=== PATIENT | female | born 1970 | race Caucasian/White ===

== ENCOUNTER 2023-06-22 20:03 | Observation (INO) ==
[2023-06-22] MEDS ORDERED: KETOROLAC TROMETHAMINE 15 MG/ML VIAL IV STA (20:30)
[2023-06-22] MEDS ORDERED: ONDANSETRON INJ 2 MG/ML 2 ML VIAL IV STA ×2 (20:30→23:06)
[2023-06-22 21:57] LABS: Albumin Level 4.8 gm/dl (3.4-5.0); BUN Creatinine Ratio 22.4 (10-20); Basophils # (auto) 0.04 K/uL (0-0.2); Basophils % (auto) 0.6 %; Bilirubin,Total 0.4 mg/dl (0.2-1.0); Calcium 9.5 mg/dl (8.6-10.3); Creatinine Clr Calc Pharmacy 112.7 ml/min; Eosinophils # (auto) 0.09 K/uL (0-0.50); Eosinophils % (auto) 1.5 %; Est GFR (Non-African American) 77.7 ml/min; Globulin 2.4 gm/dl (2.5-4.0); Hematocrit (blood only) 40.4 % (37.0-47.0); Hemoglobin 14.1 g/dl (12.0-16.0); Immature Granulocytes # (auto) 0.02 K/uL (0.01-0.20); Immature Granulocytes % (auto) 0.3 %; Lymphocytes # (auto) 1.47 K/uL (1.2-3.4); Lymphocytes % (auto) 23.9 %; Mean Corpuscular Hgb Conc 34.9 g/dL (32.0-36.0); Mean Platelet Volume 9.7 fL (9.4-12.4); Monocytes # (auto) 0.31 K/uL (0.11-0.59); Neutrophils # (auto) 4.23 K/uL (1.40-6.50); Neutrophils % (auto) 68.7 %; Platelet Count 185 K/uL (130-400); Potassium 3.6 mmol/L (3.5-5.1); RDW Coefficient of Variation 13.4 % (11.5-14.5); RDW Standard Deviation 41.8 fL (36.4-46.3); Total Protein 7.2 gm/dl (6.0-8.3); White Blood Count 6.16 K/ul (4.8-10.8)
[2023-06-22] MEDS ORDERED: MoRPHine SULFATE 4 MG/ML 1 ML CARP\\VIAL IV STA (23:06)
--- NOTE | 2023-06-22 23:06 | Emergency Department Note ---
History of Present Illness General Chief complaint: Kidney Stone Stated complaint: KIDNEY STONES Time Seen by Provider: 06/22/23 21:37 History of Present Illness Maximum Pain Intensity: 8 This 53-year-old female presents the ER complaining of severe right flank pain. Patient denies chest pain, dyspnea, vomiting, diarrhea, urinary symptoms. Home Medications Medication Instructions Recorded Confirmed Type fluticasone propionate 220 2 puffs inhalation BID 08/02/18 05/25/23 History mcg/actuation HFA aerosol inhaler (Flovent HFA) montelukast 10 mg tablet 10 mg PO QPM 08/02/18 05/25/23 History (Singulair) albuterol sulfate 90 mcg/actuation 1 puffs inhalation Q6H PRN 03/28/19 05/25/23 History aerosol inhaler onabotulinumtoxinA 100 unit See Rx Instructions intradermal 11/15/19 05/25/23 History solution for injection (Botox) .COMPLEX multivitamin (Multiple Vitamins 1 tab PO DAILY 05/25/20 05/25/23 History tablet) promethazine 50 mg tablet 50 mg PO Q6H PRN nausea and 12/10/20 05/25/23 Rx vomiting #10 tabs lisinopril 2.5 mg tablet 2.5 mg PO DAILY 06/03/21 05/25/23 History sumatriptan succinate 100 mg tablet See Rx Instructions PO .COMPLEX 30 06/03/21 05/25/23 Rx days #9 tabs meloxicam 15 mg tablet 15 mg PO DAILY 11/25/22 05/25/23 History hydroxychloroquine 200 mg tablet 200 mg PO BID 01/02/23 05/25/23 History pantoprazole 20 mg tablet,delayed 20 mg PO DAILY 01/02/23 05/25/23 History release topiramate 100 mg tablet 100 mg PO HS #30 tabs 02/10/23 05/25/23 Rx galcanezumab-gnlm 120 mg/mL See Rx Instructions .Route 04/17/23 05/25/23 Rx subcutaneous pen injector .COMPLEX #1 mL (Emgality Pen) glipizide 5 mg tablet 10 mg PO BID 05/25/23 05/25/23 History semaglutide 0.25 mg or 0.5 mg (2 0.25 mg subcut .weekly 05/25/23 05/25/23 History mg/3 mL) subcutaneous pen injector (Ozempic) Allergies Allergy/AdvReac Type Severity Reaction Status Date / Time azathioprine [From Imuran] Allergy Severe Chills, Verified 05/25/23 11:31 fever, body aches, fatigue Past Med/Surg History Medical History (Updated 06/23/23 @ 01:29 by Kalee Jones PA-C) Asthma CAD (coronary artery disease) Chronic migraine Depression Fatigue Headache Hypercholesterolemia Hypertension Migraine Spinal stenosis of lumbar region Symptomatic bradycardia Surgical History H/O wisdom tooth extraction History of section History of dilatation and curettage History of sinus surgery Family History Mother COPD (chronic obstructive pulmonary disease) Social History Smoking Status: Never smoker Hx Alcohol Use: Yes (socially) Hx Substance Use: No Preferred Language: Vincentian Communication Ability: Effective Visual Impairment: No Limitations Hearing Ability: Normal Beliefs That Will Affect Care: None marital status: Current Living Situation: Spouse current occupational status: employed 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 Feels Safe at Home: Yes Review of Systems A total of 10 systems reviewed and were otherwise negative Physical Exam Vital Signs Vital Signs - 24 hr 06/22/23 20:25 06/23/23 00:07 Temperature 36.5 C Temperature Source Oral Pulse Rate 63 Pulse Rate [Finger] 60 Pulse Rhythm [Finger] Regular Pulse Strength [Finger] Normal Respiratory Rate 20 24 Respiratory Effort / Characteristics Non-Labored Non-Labored Respiratory Depth Normal Normal Blood Pressure 182/81 H Blood Pressure [Right Arm] 196/97 H Blood Pressure Mean 114 Blood Pressure Mean [Right Arm] 130 Pulse Oximetry 99 Oxygen Delivery Method Room Air Sepsis Recent Fever Within 48 Hours No Sepsis New/Unexplained Change in Mental Status No Sepsis Action Taken by Nursing No Action Required VITALS: Vitals are noted on the nurse's note and reviewed by myself. Vital signs hypertensive. GENERAL: Pleasant female who appears in pain, in no acute distress, nondiaphoretic, well-developed well-nourished. SKIN: The skin was without rashes, erythema, edema, or bruising. There is no tenting of the skin. Capillary reflex less than 2 seconds. HEAD: Normocephalic atraumatic. EARS: External auditory canals clear, EYES: Pupils equal round and reactive to light and accommodation. Conjunctivae without injection, sclerae without icterus. Extraocular movements intact. NOSE: Patent, turbinates without inflammation or discharge. MOUTH: Mucous membranes moist. Pharynx without erythema or exudate. Uvula midline. Airway patent. Tongue does not deviate. NECK: Supple without nuchal rigidity. No lymphadenopathy. No thyromegaly. Cervical spine is nontender. No JVD. HEART: Regular rate and rhythm LUNGS: Clear to auscultation bilaterally without wheezes, rales or rhonchi. No retractions or accessory muscle use. ABDOMEN: Positive bowel sounds x 4. Normal tympanic percussion. Soft, nontender, without masses or organomegaly. Herron sign negative. No guarding or rebound tenderness. No CVA tenderness MUSCULOSKELETAL: No muscle atrophy, erythema, or edema noted. NEURO: Patient was alert and oriented to person place and time. Normal sensation to light and sharp touch. No focal neurological deficits. Course Administered Medications Discontinued Medications Ioversol (Ioversol 350 Mg 125ml Prefilled Syringe) 117 ml IV ONCE ONE Stop: 06/22/23 23:56 Last Admin: 06/22/23 23:57 Dose: 117 ml Documented By: ODALIS Ketorolac Tromethamine (Ketorolac Tromethamine 15 Mg/Ml Vial) 15 mg IV ONE STA Stop: 06/22/23 20:31 Last Admin: 06/22/23 21:27 Dose: 15 mg Documented By: ARIC Morphine Sulfate (Morphine Sulfate 4 Mg/Ml 1 Ml Carp\Vial) 4 mg IV NOW STA Stop: 06/22/23 23:07 Last Admin: 06/23/23 00:12 Dose: 4 mg Documented By: NEVIN Ondansetron HCl (Ondansetron Inj 2 Mg/Ml 2 Ml Vial) 4 mg IV NOW STA Stop: 06/22/23 20:31 Last Admin: 06/22/23 21:26 Dose: 4 mg Documented By: ARIC Ondansetron HCl (Ondansetron Inj 2 Mg/Ml 2 Ml Vial) 4 mg IV NOW STA Stop: 06/22/23 23:07 Last Admin: 06/23/23 00:13 Dose: 4 mg Documented By: NEVIN Medical Decision Making Medical Records Attestation: I reviewed the patient's medical records. Home Medications Current Medication List: was personally reviewed by me Laboratory Data Attestation: I reviewed the patient's lab results. 06/22/23 20:30 06/22/23 20:30 Lab Results 06/22/23 06/22/23 06/22/23 Range/Units 20:30 20:30 21:26 WBC 6.16 (4.8-10.8) K/ul RBC 4.70 (4.20-5.40) M/uL Hgb 14.1 (12.0-16.0) g/dl Hct 40.4 (37.0-47.0) % MCV 86.0 (80.0-100.0) fL MCH 30.0 (25.0-34.0) pg MCHC 34.9 (32.0-36.0) g/dL RDW Std Deviation 41.8 (36.4-46.3) fL RDW Coeff of Xochitl 13.4 (11.5-14.5) % Plt Count 185 (130-400) K/uL MPV 9.7 (9.4-12.4) fL Immature Gran % (Auto) 0.3 % Neut % (Auto) 68.7 % Lymph % (Auto) 23.9 % [place] % (Auto) 5.0 % Eos % (Auto) 1.5 % Baso % (Auto) 0.6 % Neut # (Auto) 4.23 (1.40-6.50) K/uL Lymph # (Auto) 1.47 (1.2-3.4) K/uL [place] # (Auto) 0.31 (0.11-0.59) K/uL Eos # (Auto) 0.09 (0-0.50) K/uL Baso # (Auto) 0.04 (0-0.2) K/uL Immature Gran # (Auto) 0.02 (0.01-0.20) K/uL Sodium 140 (136-145) mmol/L Potassium 3.6 (3.5-5.1) mmol/L Chloride 106 (98-107) mmol/L Carbon Dioxide 26 (21-32) mmol/L Anion Gap 8 (3-11) BUN 19 (6-23) mg/dl Creatinine 0.85 (0.6-1.2) mg/dl Est Cr Clr Drug Dosing 112.7 ml/min Est GFR ( Amer) 90.0 ml/min Est GFR (Non-Af Amer) 77.7 ml/min BUN/Creatinine Ratio 22.4 H (10-20) Glucose 210 H (70-99(Fasting)) mg/dl Calcium 9.5 (8.6-10.3) mg/dl Total Bilirubin 0.4 (0.2-1.0) mg/dl AST 19 (13-39) U/L ALT 11 (7-52) U/L Alkaline Phosphatase 94 (34-104) U/L Total Protein 7.2 (6.0-8.3) gm/dl Albumin 4.8 (3.4-5.0) gm/dl Globulin 2.4 L (2.5-4.0) gm/dl Albumin/Globulin Ratio 2.0 (0.9-2) Urine Color Yellow Urine Appearance Clear (Clear) Urine pH 5.5 (4.5-7.5) Ur Specific [place] 1.017 (1.000-1.030) Urine Protein 1+ H (Negative) Urine Glucose (UA) Negative (Negative) Urine Ketones Negative (Negative) Urine Blood 3+ H (Negative) Urine Nitrite Negative (Negative) Urine Bilirubin Negative (Negative) Urine Urobilinogen Negative (Negative) Ur Leukocyte Esterase Negative (Negative) Urine WBC (Auto) 1-5 (0-5) /hpf Urine RBC (Auto) >30 H (0-4) /hpf U Hyaline Cast (Auto) 1-5 (0-5) /lpf U Epithel Cells (Auto) 10-20 H (0-5) /lpf Urine Bacteria (Auto) Negative (Negative) Urine Test (Negative) 06/22/23 Range/Units 21:26 WBC (4.8-10.8) K/ul RBC (4.20-5.40) M/uL Hgb (12.0-16.0) g/dl Hct (37.0-47.0) % MCV (80.0-100.0) fL MCH (25.0-34.0) pg MCHC (32.0-36.0) g/dL RDW Std Deviation (36.4-46.3) fL RDW Coeff of Xochitl (11.5-14.5) % Plt Count (130-400) K/uL MPV (9.4-12.4) fL Immature Gran % (Auto) % Neut % (Auto) % Lymph % (Auto) % [place] % (Auto) % Eos % (Auto) % Baso % (Auto) % Neut # (Auto) (1.40-6.50) K/uL Lymph # (Auto) (1.2-3.4) K/uL [place] # (Auto) (0.11-0.59) K/uL Eos # (Auto) (0-0.50) K/uL Baso # (Auto) (0-0.2) K/uL Immature Gran # (Auto) (0.01-0.20) K/uL Sodium (136-145) mmol/L Potassium (3.5-5.1) mmol/L Chloride (98-107) mmol/L Carbon Dioxide (21-32) mmol/L Anion Gap (3-11) BUN (6-23) mg/dl Creatinine (0.6-1.2) mg/dl Est Cr Clr Drug Dosing ml/min Est GFR ( Amer) ml/min Est GFR (Non-Af Amer) ml/min BUN/Creatinine Ratio (10-20) Glucose (70-99(Fasting)) mg/dl Calcium (8.6-10.3) mg/dl Total Bilirubin (0.2-1.0) mg/dl AST (13-39) U/L ALT (7-52) U/L Alkaline Phosphatase (34-104) U/L Total Protein (6.0-8.3) gm/dl Albumin (3.4-5.0) gm/dl Globulin (2.5-4.0) gm/dl Albumin/Globulin Ratio (0.9-2) Urine Color Urine Appearance (Clear) Urine pH (4.5-7.5) Ur Specific [place] (1.000-1.030) Urine Protein (Negative) Urine Glucose (UA) (Negative) Urine Ketones (Negative) Urine Blood (Negative) Urine Nitrite (Negative) Urine Bilirubin (Negative) Urine Urobilinogen (Negative) Ur Leukocyte Esterase (Negative) Urine WBC (Auto) (0-5) /hpf Urine RBC (Auto) (0-4) /hpf U Hyaline Cast (Auto) (0-5) /lpf U Epithel Cells (Auto) (0-5) /lpf Urine Bacteria (Auto) (Negative) Urine Test Negative (Negative) Imaging Data Attestation: I personally reviewed and interpreted this imaging study as follows: Radiologist's Impression: Abdomen/Pelvis CT 06/22/23 21:38 Exam(s): CT ABDOMEN + PELVIS With Contrast IV Amt: 117 ml optiray 350 EXAM: CT Abdomen and Pelvis With Intravenous Contrast CLINICAL HISTORY: Reason for exam: flank pain. TECHNIQUE: Axial computed tomography images of the abdomen and pelvis with intravenous contrast. CTDI is 28.14 mGy and DLP is 1507.39 mGy-cm. Automated exposure control was utilized for the study. A dose lowering technique was utilized adhering to the principles of ALARA. CONTRAST: Patient received 117 ml optiray 350 of IV contrast COMPARISON: 04/10/2023. FINDINGS: Lung bases: Mild bilateral lower lobe atelectasis. ABDOMEN: Liver: Unremarkable. No mass. Gallbladder and bile ducts: Unremarkable. No calcified stones. No ductal dilation. Pancreas: Unremarkable. No mass. No ductal dilation. Spleen: The spleen measures 14.3 cm consistent with mild splenomegaly. Adrenals: Unremarkable. No mass. Kidneys and ureters: Mild right-sided hydronephrosis due to a distal right ureteral stone measuring 4.2 mm, seen just above the right UV junction. Otherwise unremarkable right kidney. Left middle renal pole stone measuring 4 mm. Stomach and bowel: The descending colon is decompressed. Moderate fecal debris within the right and transverse colon. No obstruction. No mucosal thickening. PELVIS: Appendix: Distinct appendix not seen with no inflammation by the cecum to suggest appendicitis. Bladder: Unremarkable. No mass. Reproductive: Anteverted uterus with IUD in place. ABDOMEN and PELVIS: Intraperitoneal space: Unremarkable. No free air. No significant fluid collection. Bones/joints: No acute fracture. No dislocation. Soft tissues: Unremarkable. Vasculature: Unremarkable. No abdominal aortic aneurysm. Lymph nodes: Unremarkable. No enlarged lymph nodes. IMPRESSION: 1. Mild right hydronephrosis due to a 4.2 mm stone just above the right UV junction. 2. Nonobstructive stone within the left mid lower renal pole measuring 4 mm. 3. Anteverted uterus with IUD in place. 4. No bowel obstruction or focal inflammatory process throughout the gastrointestinal tract. Electronically signed by: Helen Miller MD 06/23/23 01:23 AM MDM Narrative Prior records/ancillary studies reviewed. Triage Nursing notes reviewed. Additional history obtained from nursing The patient's history was concerning for flank pain. Differential diagnosis: Etiologies such as renal colic, appendicitis, diverticulitis, mesenteric ischemia, aortic pathology, infections, inflammatory bowel disease, PUD, biliary pathology, UTI, as well as others were entertained. Physical examination findings: As above. ER treatment provided: Toradol IV fluids morphine and Zofran ordered Morphine and Flomax were ordered On reassessment the patient felt better. Diagnostic interpretation by me: The labs Independently Interpreted by myself revealed no worrisome leukocytosis. Urinalysis revealed There was no sign of UTI. Imaging studies: CT of the abdomen pelvis concerning for right renal stone with hydronephrosis per my independent interpretation. Report was reviewed as above. Consultation: A consultation was placed with the hospitalist. The case was discussed and diagnostics were reviewed. The patient was evaluated in the ER for further treatment. It appears that the patient has isolated renal colic from a right sided stone. Patient was still having severe amount of pain despite being medicated multiple times. Labs and diagnostics were independent reviewed by myself. Patient is requesting admission. Medicine was consulted and the case was discussed. P atient will be evaluated by the admission team for possible admission. By the evaluation outlined above emergent etiologies such as appendicitis, diverticulitis, mesenteric ischemia, aortic pathology, infections, inflammatory bowel disease, PUD, biliary pathology, UTI, as well as others were deemed relatively unlikely. The pt informed about the findings as listed above. All questions were answered and pleased with the treatment. The chart was completed utilizing [employer] Speech voice recognition software. Grammatical errors, random word insertions, pronoun errors, and incomplete sentences are an occassional consequence of this system due to software limitations, ambient noise, and hardware issues. Any formal questions or concerns about the content, text, or information contained within the body of this dictation should be directly addressed to the physician assistant professor of history for clarification. Impression & Plan Renal colic on right side, Ureterolithiasis, Intractable pain Discharge Plan Visit Data Chief Complaint: Kidney Stone Stated Complaint: KIDNEY STONES ED Provider: [facility] ED Midlevel Provider: Kalee Jones Discharge Problem: Renal colic on right side, Ureterolithiasis, Intractable pain Patient Disposition: Being Evaluated by Hospitalist Condition: Good Forms Stand Alone Forms: My [facility] Prescriptions Prescriptions: No Action fluticasone propionate [Flovent HFA] 220 mcg/actuation HFA aerosol inhaler 2 puffs INH BID montelukast [Singulair] 10 mg tablet 10 mg PO QPM albuterol sulfate 90 mcg/actuation HFA aerosol inhaler 1 puffs INH Q6H PRN meloxicam 15 mg tablet 15 mg PO DAILY Ozempic 0.25 mg or 0.5 mg (2 mg/3 mL) pen injector 0.25 mg subcut .weekly topiramate 100 mg tablet 100 mg PO HS Qty: 30 5RF Emgality Pen 120 mg/mL pen injector See Rx Instructions .ROUTE .COMPLEX Qty: 1 5RF Dose Instruction: inject 120 mg under the skin once a month Rx Instructions: inject 120 mg under the skin once a month promethazine 50 mg tablet 50 mg PO Q6H PRN (Reason: nausea and vomiting) Qty: 10 0RF Botox 100 unit recon soln See Rx Instructions intradermal .COMPLEX Rx Instructions: pain clinic, intradermal ; multivitamin [Multiple Vitamins] Tablet 1 tab PO DAILY sumatriptan succinate 100 mg tablet See Rx Instructions PO .COMPLEX 30 Days Qty: 9 5RF Rx Instructions: take 1 tab at onset of headache; if no relief, may repeat 1 tab after at least 2 hrs; max = 2 tabs/24 hrs PO lisinopril 2.5 mg tablet 2.5 mg PO DAILY glipizide 5 mg tablet 10 mg PO BID hydroxychloroquine 200 mg tablet 200 mg PO BID pantoprazole 20 mg tablet,delayed release (DR/EC) 20 mg PO DAILY Referrals Referrals: Harshal Lainez DO [Primary Care Provider] -
[2023-06-22 23:12] LABS: Appearance Urine Clear (Clear); Bacteria Urine Automated Negative (Negative); Bilirubin Urine Negative (Negative); Blood Urine 3+ (Negative); Color Urine Yellow; Glucose Urine UA Negative (Negative); Ketones Urine Negative (Negative); Leukocyte Esterase Urine Negative (Negative); Nitrite Urine Negative (Negative); Protein Urine 1+ (Negative); RBC Urine Automated >30 /hpf (0-4); Specific Gravity Urine 1.017 (1.000-1.030); Urobilinogen Urine Negative (Negative); pH Urine 5.5 (4.5-7.5)
[2023-06-22] MEDS ORDERED: IOVERSOL 350 MG 125mL Prefilled Syringe IV ONE (23:55)
[2023-06-23 00:24] LABS: Pregnancy Test, Urine Negative (Negative)
--- NOTE | 2023-06-23 01:24 | CT Scan Report ---
Exam(s): CT ABDOMEN + PELVIS With Contrast IV Amt: 117 ml optiray 350 EXAM: CT Abdomen and Pelvis With Intravenous Contrast CLINICAL HISTORY: Reason for exam: flank pain. TECHNIQUE: Axial computed tomography images of the abdomen and pelvis with intravenous contrast. CTDI is 28.14 mGy and DLP is 1507.39 mGy-cm. Automated exposure control was utilized for the study. A dose lowering technique was utilized adhering to the principles of ALARA. CONTRAST: Patient received 117 ml optiray 350 of IV contrast COMPARISON: 04/10/2023. FINDINGS: Lung bases: Mild bilateral lower lobe atelectasis. ABDOMEN: Liver: Unremarkable. No mass. Gallbladder and bile ducts: Unremarkable. No calcified stones. No ductal dilation. Pancreas: Unremarkable. No mass. No ductal dilation. Spleen: The spleen measures 14.3 cm consistent with mild splenomegaly. Adrenals: Unremarkable. No mass. Kidneys and ureters: Mild right-sided hydronephrosis due to a distal right ureteral stone measuring 4.2 mm, seen just above the right UV junction. Otherwise unremarkable right kidney. Left middle renal pole stone measuring 4 mm. Stomach and bowel: The descending colon is decompressed. Moderate fecal debris within the right and transverse colon. No obstruction. No mucosal thickening. PELVIS: Appendix: Distinct appendix not seen with no inflammation by the cecum to suggest appendicitis. Bladder: Unremarkable. No mass. Reproductive: Anteverted uterus with IUD in place. ABDOMEN and PELVIS: Intraperitoneal space: Unremarkable. No free air. No significant fluid collection. Bones/joints: No acute fracture. No dislocation. Soft tissues: Unremarkable. Vasculature: Unremarkable. No abdominal aortic aneurysm. Lymph nodes: Unremarkable. No enlarged lymph nodes. IMPRESSION: 1. Mild right hydronephrosis due to a 4.2 mm stone just above the right UV junction. 2. Nonobstructive stone within the left mid lower renal pole measuring 4 mm. 3. Anteverted uterus with IUD in place. 4. No bowel obstruction or focal inflammatory process throughout the gastrointestinal tract. Electronically signed by: Helen Miller MD 06/23/23 01:23 AM
[2023-06-23] MEDS ORDERED: TAMSULOSIN HCL 0.4 MG CAP PO ONE (01:28)
[2023-06-23] MEDS ORDERED: MoRPHine SULFATE 4 MG/ML 1 ML CARP\\VIAL IV STA (02:32)
[2023-06-23] MEDS ORDERED: KETOROLAC TROMETHAMINE 15 MG/ML VIAL IV STA (02:32)
--- NOTE | 2023-06-23 03:14 | History & Physical Report ---
Date of Service June 23, 2023 Assessment & Plan (1) Ureterolithiasis: Plan: Right-sided 4.2 mm ureterolithiasis just above the UV junction. Presented with 6 days of worsening right flank pain and some intermittent urinary urgency likely secondary to hematuria. No evidence of infection on UA. Renal function is normal. No leukocytosis or fevers. She was first aware that she had kidney stones on a CT scan done in March when she was admitted at an outside hospital for an allergic reaction to azathioprine. She has been on tamsulosin for years and never had any kidney stones in the past. Her calcium levels are normal. Admitted for intractable pain and maximal expulsive therapy -Admit to medical/surgical unit -Start tamsulosin 0.4 Mg p.o. once daily -Start normal saline with 1 L over 4 hours now and then 125 MLS per hour -Continue IV morphine as needed for pain -IV Zofran as needed for pain -Consult urology in case of need for ureteral stent and stone treatment -Keep n.p.o. for now until seen by urology later this morning -Follow CBC, BMP (2) Asthma: Plan: No acute issues Continue home Singulair (3) Hypertension: Plan: Blood pressures are mildly elevated likely secondary to pain -Continue home lisinopril (4) Diabetes mellitus type 2 in obese: Plan: Last hemoglobin A1c in our lab system was uncontrolled at 8.8% in 2021 Blood glucose here elevated at 210 on arrival -Hold home glipizide -Start NovoLog supplemental insulin and may need to add Lantus if remains hyperglycemic -Check hemoglobin A1c in the morning -Diabetic diet once taking p.o. (5) Lupus: Plan: No acute issues, follows with rheumatology Continue home Plaquenil and meloxicam (6) Allergic rhinitis: Plan: Continue home Singulair (7) Chronic migraine: Plan: No acute issues Continue home Topamax. She receives Botox injections as well as galcanezumab- [facility] Follows with neurology Plan DVT prophylaxis-SCDs Disposition-admit to medical/surgical unit History of Present Illness Chief Complaint: Severe right-sided back pain Primary Care Provider: Harshal Lainez DO This patient is a 53-year-old female with a history of SLE, migraines, HTN, GERD, DM2 with neuropathy, allergies and asthma, TREJO who presents to the ER with severe right-sided back pain that has been worsening over the last day but started about 6 days ago. 6 days ago, she reports feeling pressure and urinary urgency for which she started drinking apple cider vinegar and cranberry juice a nd it did seem to get somewhat better. The right flank pain started most intensely last evening. She has not had any fevers or chills. She did have some nausea but no vomiting. Last bowel movement was earlier today. In the ER, she was found to have 3+ blood on urinalysis with greater than 30 RBCs, but no evidence of infection. A CT abdomen/pelvis showed mild right-sided hydronephrosis due to a 4.2 mm stone just above the right UV junction. In the ER, she was given 2 doses of Toradol, 2 doses of morphine, a dose of tamsulosin, and 2 doses of IV Zofran. Her labs were otherwise normal and she did not have any signs of renal insufficiency. She will be admitted for pain control and urology evaluation. Allergies Allergy/AdvReac Type Severity Reaction Status Date / Time azathioprine [From Imuran] Allergy Severe Chills, Verified 05/25/23 11:31 fever, body aches, fatigue Home Medications Medication Instructions Recorded Confirmed Type montelukast 10 mg tablet 10 mg PO QPM 08/02/18 06/23/23 History (Singulair) onabotulinumtoxinA 100 unit See Rx Instructions intradermal 11/15/19 06/23/23 History solution for injection (Botox) .COMPLEX multivitamin (Multiple Vitamins 1 tab PO DAILY 05/25/20 06/23/23 History tablet) sumatriptan succinate 100 mg tablet See Rx Instructions PO .COMPLEX 30 06/03/21 06/23/23 Rx days #9 tabs meloxicam 15 mg tablet 15 mg PO DAILY 11/25/22 06/23/23 History hydroxychloroquine 200 mg tablet 200 mg PO BID 01/02/23 06/23/23 History topiramate 100 mg tablet 100 mg PO HS #30 tabs 02/10/23 06/23/23 Rx galcanezumab-gnlm 120 mg/mL See Rx Instructions .Route 04/17/23 06/23/23 Rx subcutaneous pen injector .COMPLEX #1 mL (Emgality Pen) semaglutide 0.25 mg or 0.5 mg (2 0.25 mg subcut .weekly 05/25/23 06/23/23 History mg/3 mL) subcutaneous pen injector (Ozempic) glipizide 10 mg tablet 10 mg PO BID 06/23/23 06/23/23 History lisinopril 10 mg tablet 10 mg PO DAILY 06/23/23 06/23/23 History pantoprazole 40 mg tablet,delayed 40 mg PO DAILY 06/23/23 06/23/23 History release Past Med/Surg History Medical History (Updated 06/23/23 @ 03:52 by Trish Zaragoza MD) Allergic rhinitis Asthma CAD (coronary artery disease) Chronic migraine Depression Diabetes mellitus type 2 in obese Fatigue Headache Hypercholesterolemia Hypertension Lupus Migraine Spinal stenosis of lumbar region Symptomatic bradycardia Surgical History H/O wisdom tooth extraction History of section History of dilatation and curettage History of sinus surgery Family History Mother COPD (chronic obstructive pulmonary disease) Social History Smoking Status: Never smoker Hx Alcohol Use: Yes (socially) Hx Substance Use: No Preferred Language: Faroese Communication Ability: Effective Visual Impairment: No Limitations Hearing Ability: Normal Beliefs That Will Affect Care: None marital status: Current Living Situation: Spouse current occupational status: employed 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 Feels Safe at Home: Yes Review of Systems Review of Systems: All systems reviewed & are unremarkable except as noted in HPI & below Physical Exam Constitutional: WD/WN, vitals as above ENMT: external ear and nose normal, oropharynx normal Neck: trachea midline, no thyromegaly Respiratory: normal respiratory effort, lungs clear to auscultation Cardiovascular: RRR, no murmur, no edema Chest (Breasts): Chest: normal inspection of chest Gastrointestinal (Abdomen): normal bowel sounds, soft, nontender, no hepatosplenomegaly Musculoskeletal: Extremities: extremities normal to inspection; no cyanosis and no clubbing Skin: no rashes, warm and dry Neurologic: moves all extremities and awake; no focal motor deficits Psychiatric: A+Ox3, euthymic affect Lymphatic: no lymphedema Results & Data Results & Data Vital Signs (Past 12 Hours) Vital Signs Temp Pulse Pulse Resp BP BP Pulse Ox 06/23/23 03:00 53 L 13 94 06/23/23 03:00 153/102 H 06/23/23 02:30 56 L 14 97 06/23/23 02:30 160/96 H 06/23/23 02:00 64 25 H 95 06/23/23 02:00 149/94 H 06/23/23 01:30 61 14 95 06/23/23 01:30 159/92 H 06/23/23 01:00 59 L 16 147/86 H 94 06/23/23 00:30 61 18 158/98 H 95 06/23/23 00:07 62 15 196/97 H 97 06/23/23 00:07 60 24 196/97 H 06/22/23 20:25 36.5 C 63 20 182/81 H 99 O2 Del Method 06/23/23 03:00 06/23/23 03:00 06/23/23 02:30 06/23/23 02:30 06/23/23 02:00 06/23/23 02:00 06/23/23 01:30 06/23/23 01:30 06/23/23 01:00 06/23/23 00:30 06/23/23 00:07 06/23/23 00:07 06/22/23 20:25 Room Air Laboratory Results CBC, CMP, urinalysis reviewed Diagnostic Findings Abdomen/Pelvis CT 06/22/23 21:38 Exam(s): CT ABDOMEN + PELVIS With Contrast IV Amt: 117 ml optiray 350 EXAM: CT Abdomen and Pelvis With Intravenous Contrast CLINICAL HISTORY: Reason for exam: flank pain. TECHNIQUE: Axial computed tomography images of the abdomen and pelvis with intravenous contrast. CTDI is 28.14 mGy and DLP is 1507.39 mGy-cm. Automated exposure control was utilized for the study. A dose lowering technique was utilized adhering to the principles of ALARA. CONTRAST: Patient received 117 ml optiray 350 of IV contrast COMPARISON: 04/10/2023. FINDINGS: Lung bases: Mild bilateral lower lobe atelectasis. ABDOMEN: Liver: Unremarkable. No mass. Gallbladder and bile ducts: Unremarkable. No calcified stones. No ductal dilation. Pancreas: Unremarkable. No mass. No ductal dilation. Spleen: The spleen measures 14.3 cm consistent with mild splenomegaly. Adrenals: Unremarkable. No mass. Kidneys and ureters: Mild right-sided hydronephrosis due to a distal right ureteral stone measuring 4.2 mm, seen just above the right UV junction. Otherwise unremarkable right kidney. Left middle renal pole stone measuring 4 mm. Stomach and bowel: The descending colon is decompressed. Moderate fecal debris within the right and transverse colon. No obstruction. No mucosal thickening. PELVIS: Appendix: Distinct appendix not seen with no inflammation by the cecum to suggest appendicitis. Bladder: Unremarkable. No mass. Reproductive: Anteverted uterus with IUD in place. ABDOMEN and PELVIS: Intraperitoneal space: Unremarkable. No free air. No significant fluid collection. Bones/joints: No acute fracture. No dislocation. Soft tissues: Unremarkable. Vasculature: Unremarkable. No abdominal aortic aneurysm. Lymph nodes: Unremarkable. No enlarged lymph nodes. IMPRESSION: 1. Mild right hydronephrosis due to a 4.2 mm stone just above the right UV junction. 2. Nonobstructive stone within the left mid lower renal pole measuring 4 mm. 3. Anteverted uterus with IUD in place. 4. No bowel obstruction or focal inflammatory process throughout the gastrointestinal tract. Electronically signed by: Helen Miller MD 06/23/23 01:23 AM Code Status & VTE Plan Code Status Full code VTE Prophylaxis Plan VTE Prophylaxis will be ordered: Yes PG Care Time/CCT Total # of Minutes Spent Total Time Spent with Patient: Total time spent is greater than 50% in coordination of care (as documented) at patient's floor/unit and/or counseling patient: Coding Level of Care Code 04658 INT INP/OBS CARE 3/75MIN Diagnoses Ureterolithiasis N20.1 Asthma J45.909 Hypertension I10 Diabetes mellitus type 2 in obese E11.69; E66.9 Lupus M32.9 Allergic rhinitis J30.9 Chronic migraine G43.709
[2023-06-23] MEDS ORDERED: SODIUM CHLORIDE 0.9% 1000ML 1,000 ML IV STA (03:47)
[2023-06-23] MEDS ORDERED: CARBOHYDRATES FOR HYPOGLYCEMIA PO PRN (05:47)
[2023-06-23] MEDS ORDERED: ACETAMINOPHEN 325 MG TAB PO PRN (05:47)
[2023-06-23] MEDS ORDERED: GLUCOSE 40% GEL 15 GM TUBE PO PRN (05:47)
[2023-06-23] MEDS ORDERED: DEXTROSE 50% 50 ML SYRINGE IV PRN (05:47)
[2023-06-23] MEDS ORDERED: GLUCOSE 10 TAB/TUBE PO PRN (05:47)
[2023-06-23] MEDS ORDERED: GLUCAGON FOR INJ 1 MG VIAL SQ PRN (05:47)
[2023-06-23] MEDS ORDERED: ONDANSETRON INJ 2 MG/ML 2 ML VIAL IV PRN ×2 (05:47→12:36)
[2023-06-23] MEDS: INSULIN ASPART PER UNIT CHARGE SC SCH ×4 (06:15→21:11)
[2023-06-23] MEDS: MoRPHine SULFATE 2 MG/ML CARP IV PRN ×3 (06:55→14:13)
--- NOTE | 2023-06-23 08:20 | Hospitalist Progress Note ---
Date of Service June 23, 2023 Assessment & Plan (1) Ureterolithiasis: (2) Asthma: (3) Hypertension: (4) Diabetes mellitus type 2 in obese: (5) Lupus: (6) Allergic rhinitis: (7) Chronic migraine: Plan Pt is a 53 year old female presenting with right flank pain. # Ureterolithiasis: - CT with right-sided 4.2mm stone above UV junction - UA negative - Afebrile, no leukocytosis - Continue IVF, NS 125mL/hr - Continue prn pain control with morphine, toradol - Continue tamsulosin 0.4mg daily - Urology consult, patient electing for cystoscopy with possible right stone treatment with ureteroscopy and stent #Asthma - Continue home singulair #HTN - Continue home Lisinopril #T2DM: - Hold glipizide - Insulin sliding scale #Lupus: - Continue home plaquenil, meloxicam - Follows with rheumatology #Allergic Rhinitis: - Continue Singulair #Chronic Migraine - Continue home Topamax - Follows with neurology, receives botox injections + galcanezumab-[facility] Disp: Med-Surg VTE Prophylaxis: SCD Diet: NPO Admission and Anticipated Discharge Date Admission Date: June 23, 2023 Supervising Physician Co-Signing Physician Notes Resident Physician Supervision Note: I independently interviewed and examined the patient and verified the tran history and physical, reviewed labs and image studies and agree with resident findings and care plan. Subjective Pt is a 53 year old female presenting with right flank pain that began last Monday, pain significantly worsened yesterday, which led her to seek care in the ED. Patient denies dysuria, denies noticeable hematuria. No recent illness, denies fever or chills. No history of kidney stones. Denies abdominal pain, has been having normal bowel movements. Patient notes that pain is well controlled at the moment with Toradol and Morphine. Has been straining urine, no stone passed. Review of Systems 2 Review of Systems: All systems reviewed & are unremarkable except as noted in HPI & below Physical Exam Constitutional: WD/WN, vitals as above no acute distress Respiratory: normal respiratory effort, lungs clear to auscultation Cardiovascular: RRR, no murmur, no edema Gastrointestinal (Abdomen): normal bowel sounds, soft, nontender, no hepatosplenomegaly Genitourinary: No CBA tenderness Results & Data Results & Data Vital Signs (Past 12 Hours) Vital Signs Temp Pulse Pulse Resp BP BP Pulse Ox 06/23/23 08:00 36.8 C 69 21 149/94 H 94 06/23/23 06:00 70 16 170/106 H 97 06/23/23 05:30 62 15 184/100 H 96 06/23/23 05:25 54 L 06/23/23 05:00 60 13 93 06/23/23 05:00 165/96 H 06/23/23 04:30 59 L 16 94 06/23/23 04:30 160/95 H 06/23/23 04:00 61 16 96 06/23/23 04:00 164/101 H 06/23/23 03:30 64 15 95 06/23/23 03:30 168/98 H 06/23/23 03:00 53 L 13 94 06/23/23 03:00 153/102 H 06/23/23 02:30 56 L 14 97 06/23/23 02:30 160/96 H 06/23/23 02:00 64 25 H 95 06/23/23 02:00 149/94 H 06/23/23 01:30 61 14 95 06/23/23 01:30 159/92 H 06/23/23 01:00 59 L 16 147/86 H 94 06/23/23 00:30 61 18 158/98 H 95 06/23/23 00:07 62 15 196/97 H 97 06/23/23 00:07 60 24 196/97 H 06/22/23 20:25 36.5 C 63 20 182/81 H 99 O2 Del Method 06/23/23 08:00 Room Air 06/23/23 06:00 06/23/23 05:30 06/23/23 05:25 06/23/23 05:00 06/23/23 05:00 06/23/23 04:30 06/23/23 04:30 06/23/23 04:00 06/23/23 04:00 06/23/23 03:30 06/23/23 03:30 06/23/23 03:00 06/23/23 03:00 06/23/23 02:30 06/23/23 02:30 06/23/23 02:00 06/23/23 02:00 06/23/23 01:30 06/23/23 01:30 06/23/23 01:00 06/23/23 00:30 06/23/23 00:07 06/23/23 00:07 06/22/23 20:25 Room Air Resident Activity Tracking Resident Involvement: Resident Care Provided Care Provided: Adult Hospital Medicine
[2023-06-23] MEDS: SODIUM CHLORIDE 0.9% 1000ML 1,000 ML IV SCH ×3 (08:28→21:15)
[2023-06-23] MEDS: lisinopril 10 MG TAB PO SCH (10:12)
[2023-06-23] MEDS: MELOXICAM 7.5 MG TAB PO SCH (10:12)
[2023-06-23] MEDS: MULTIVITAMIN TAB PO SCH (10:12)
[2023-06-23] MEDS: HYDROXYCHLOROQUINE SULFATE 200 MG TAB PO SCH ×2 (10:12→19:27)
[2023-06-23] MEDS: PANTOprazole 40 MG TAB PO SCH (10:12)
--- NOTE | 2023-06-23 10:44 | Urology Consultation ---
Date of Consultation June 23, 2023 Assessment & Plan (1) Renal colic on right side: (2) Ureterolithiasis: Plan 53yo/F admitted with intractable right flank pain secondary to a 4.2 mm obstructing right UVJ stone. Afebrile and hemodynamically stable. Labs show no leukocytosis and normal renal function. Urinalysis without signs of infection. We discussed options for acute stone management with cystoscopy and stent placement, possible stone treatment. Ureteral stents were discussed as well as postoperative issues and pain management. She is aware that a second procedure may be needed for stone treatment. We also discussed option for max expulsion therapy. Discussed stone passage rates given size and location. We discussed possible outpatient ESWL. Risks and benefits of each discussed. She prefers to proceed with cystoscopy, right retrograde pyelogram, right ur eteral stent placement, possible ureteroscopy and stone treatment today with Dr. Granda. Risks and benefits to be reviewed with patient by Dr. Granda. Continue supportive care and pain management. Will cover with IV Ancef preoperatively. Keep NPO. Urology to follow. Greater than 60 minutes spent on chart review, assessment, planning and coordination of care, and documentation. Attending note: Patient was independently assessed, examined, interviewed, and evaluated. Agree with note as above. Patient had developed significant onset of right-sided flank pain with significant issues found to have approximately 4 mm stone in the distal ureter. Patient does have hydronephrosis. Patient's imaging was reviewed interpreted by myself. Is currently afebrile but does have an elevated blood pressure no significant tachycardia. All vitals were reviewed. Patient is having significant pain with major episodes of discomfort and bother. Has been increasing in severity. Patient has chronic medical issues. Did discuss this with patient. Discussed risk and benefits of intervention. Patient's white count is 6.16. Creatinine came back at 0.85. COVID test was negative. Hemoglobin was 14.1. Patient is currently NPO. Patient's lab work was all reviewed interpreted by myself all pertinent values in the HPI and plan section. Patient is currently 94% on room air. No other major changes. Discussed options for conservative measure and maximum expulsion medical therapy and symptom controlled. Discussed ESWL. Discussed Ureteroscopy with extraction and/or laser lithotripsy. Risks and benefits were discussed. Stone free rates were also discussed as well as possibility of multiple procedures. Ureteral stents were discussed as well as post-operative issues and pain management. All questions were answered. Risks and benefits discussed at length for procedure. These include bleeding, infection, injury to surrounding tissues or organs, and risks associated with anesthesia. Patient states understanding and agrees to proceed. Will sign consent and schedule. Plan for cystoscopy with possible right stone treatment with ureteroscopy and stent History of Present Illness Attending Physician: Coty James MD History of Present Illness 53-year-old female with a history of SLE, migraines, HTN, GERD, DM2 with neuropathy, allergies and asthma, TREJO who presented to the ED with severe right flank pain and found to have an obstructing 4.2 mm right UVJ stone. In the ER, she was afebrile and hemodynamically stable. Labs show no leukocytosis and normal renal function. She was found to have 3+ blood on urinalysis with greater than 30 RBCs, but no evidence of infection. A CT abdomen/pelvis showed mild right-sided hydronephrosis due to a 4.2 mm stone just above the right UV junction. She was given 2 doses of Toradol, 2 doses of morphine, a dose of tamsulosin, and 2 doses of IV Zofran. She was admitted to medicine for pain control. CT abdomen pelvis- 1. Mild right hydronephrosis due to a 4.2 mm stone just above the right UV junction. 2. Nonobstructive stone within the left mid lower renal pole measuring 4 mm. 3. Anteverted uterus with IUD in place. 4. No bowel obstruction or focal inflammatory process throughout the gastrointestinal tract. Patient examined at bedside in the ED today. Awake, resting bed on arrival. No acute distress. Pain has improved some with medication. Still some mild discomfort. Denies fevers, chills, nausea, vomiting. Voiding without issue. Denies hematuria or dysuria. Has been NPO. Denies prior urological history. Denies history of stones. Allergies Allergy/AdvReac Type Severity Reaction Status Date / Time azathioprine [From Imuran] Allergy Severe Chills, Verified 05/25/23 11:31 fever, body aches, fatigue Home Medications Medication Instructions Recorded Confirmed Type montelukast 10 mg tablet 10 mg PO QPM 08/02/18 06/23/23 History (Singulair) onabotulinumtoxinA 100 unit See Rx Instructions intradermal 11/15/19 06/23/23 History solution for injection (Botox) .COMPLEX multivitamin (Multiple Vitamins 1 tab PO DAILY 05/25/20 06/23/23 History tablet) sumatriptan succinate 100 mg tablet See Rx Instructions PO .COMPLEX 30 06/03/21 06/23/23 Rx days #9 tabs meloxicam 15 mg tablet 15 mg PO DAILY 11/25/22 06/23/23 History hydroxychloroquine 200 mg tablet 200 mg PO BID 01/02/23 06/23/23 History topiramate 100 mg tablet 100 mg PO HS #30 tabs 02/10/23 06/23/23 Rx galcanezumab-gnlm 120 mg/mL See Rx Instructions .Route 04/17/23 06/23/23 Rx subcutaneous pen injector .COMPLEX #1 mL (Emgality Pen) semaglutide 0.25 mg or 0.5 mg (2 0.25 mg subcut .weekly 05/25/23 06/23/23 History mg/3 mL) subcutaneous pen injector (Ozempic) glipizide 10 mg tablet 10 mg PO BID 06/23/23 06/23/23 History lisinopril 10 mg tablet 10 mg PO DAILY 06/23/23 06/23/23 History pantoprazole 40 mg tablet,delayed 40 mg PO DAILY 06/23/23 06/23/23 History release Patient History Medical History Allergic rhinitis Asthma CAD (coronary artery disease) Chronic migraine Depression Diabetes mellitus type 2 in obese Fatigue Headache Hypercholesterolemia Hypertension Lupus Migraine Spinal stenosis of lumbar region Symptomatic bradycardia Surgical History H/O wisdom tooth extraction History of section History of dilatation and curettage History of sinus surgery Family History Mother COPD (chronic obstructive pulmonary disease) Social History Smoking Status: Never smoker Hx Alcohol Use: Yes (socially) Hx Substance Use: No Preferred Language: German Communication Ability: Effective Visual Impairment: No Limitations Hearing Ability: Normal Beliefs That Will Affect Care: None marital status: Current Living Situation: Spouse current occupational status: employed 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 Feels Safe at Home: Yes Review of Systems Review of Systems: All systems reviewed & are unremarkable except as noted in HPI & below Physical Exam Constitutional: well developed and well nourished; no acute distress Neck: normal visual inspection Respiratory: normal respiratory effort; no respiratory distress and no labored breathing Musculoskeletal: Head/Neck/Chest: normocephalic Skin: No visible rashes or lesions to exposed skin areas Neurologic: moves all extremities and awake Psychiatric: A+Ox3, euthymic affect Results & Data Vital Signs (Past 12 Hours) Vital Signs Temp Pulse Pulse Resp BP BP Pulse Ox 06/23/23 08:00 36.8 C 69 21 149/94 H 94 06/23/23 06:00 70 16 170/106 H 97 06/23/23 05:30 62 15 184/100 H 96 06/23/23 05:25 54 L 06/23/23 05:00 60 13 93 06/23/23 05:00 165/96 H 06/23/23 04:30 59 L 16 94 06/23/23 04:30 160/95 H 06/23/23 04:00 61 16 96 06/23/23 04:00 164/101 H 06/23/23 03:30 64 15 95 06/23/23 03:30 168/98 H 06/23/23 03:00 53 L 13 94 06/23/23 03:00 153/102 H 06/23/23 02:30 56 L 14 97 06/23/23 02:30 160/96 H 06/23/23 02:00 64 25 H 95 06/23/23 02:00 149/94 H 06/23/23 01:30 61 14 95 06/23/23 01:30 159/92 H 06/23/23 01:00 59 L 16 147/86 H 94 06/23/23 00:30 61 18 158/98 H 95 06/23/23 00:07 62 15 196/97 H 97 06/23/23 00:07 60 24 196/97 H O2 Del Method 06/23/23 08:00 Room Air 06/23/23 06:00 06/23/23 05:30 06/23/23 05:25 06/23/23 05:00 06/23/23 05:00 06/23/23 04:30 06/23/23 04:30 06/23/23 04:00 06/23/23 04:00 06/23/23 03:30 06/23/23 03:30 06/23/23 03:00 06/23/23 03:00 06/23/23 02:30 06/23/23 02:30 06/23/23 02:00 06/23/23 02:00 06/23/23 01:30 06/23/23 01:30 06/23/23 01:00 06/23/23 00:30 06/23/23 00:07 06/23/23 00:07 PG Care Time/CCT Total # of Minutes Spent Total Time Spent with Patient: Total time spent is greater than 50% in coordination of care (as documented) at patient's floor/unit and/or counseling patient: Coding Level of Care Code 06859 IN/OBS CONSULT LVL 4,60M Diagnoses Renal colic on right side N23 Ureterolithiasis N20.1
[2023-06-23] MEDS: SUMAtriptan succinate 100 MG TAB PO PRN (10:57)
[2023-06-23] MEDS ORDERED: ceFAZolin 2000MG 2,000 MG/15 ML SYR IV ONE (11:19)
[2023-06-23] MEDS ORDERED: LIDOCAINE 2% 2 ML VIAL/AMP(20MG/ML) INFIL ONE (11:57)
[2023-06-23] MEDS ORDERED: MIDAZOLAM HCL 1 MG/ML 2ML VIAL ONE (11:57)
[2023-06-23] MEDS ORDERED: PROPOFOL IV EMULSION 10 MG/ML 20 ML VIAL IV ONE (11:57)
[2023-06-23] MEDS ORDERED: ONDANSETRON INJ 2 MG/ML 2 ML VIAL ONE (11:57)
[2023-06-23] MEDS ORDERED: fentaNYL citrate PF 100 MCG/2 ML VIAL ONE (11:58)
[2023-06-23] MEDS ORDERED: ROCURONIUM BROMIDE 10 MG/ML 5 ML VIAL IV ONE (11:58)
[2023-06-23] MEDS ORDERED: SUCCINYLCHOLINE CHLORIDE 20 MG/ML 10 ML VIAL IV ONE (11:58)
--- NOTE | 2023-06-23 12:05 | Anesthesiology Consultation ---
Date of Service June 23, 2023 Assessment & Plan Chart Review Chart Review: Acceptable Risk for Surgery Consults Requested none ASA ASA3 Proposed Anesthesia Anesthesia Type: General Risk / Benefits Reviewed With: PT / POA / Parent / Guardian, Accepts Plan and Informed Consent Obtained History Surgery Operation Date: 06/23/23 14:45 Proposed Procedures p Cystoscopy, Right Retrograde, Right Stent Placement, Possible Ureteroscopy, Laser Lithotripsy Stone - Juan Granda, DO Height/Weight Height: 5 ft 9 in Weight: 136.5 kg Allergies Allergy/AdvReac Type Severity Reaction Status Date / Time azathioprine [From Imuran] Allergy Severe Chills, Verified 05/25/23 11:31 fever, body aches, fatigue Medications Home Medications Medication Instructions Recorded Confirmed Last Taken montelukast 10 mg tablet 10 mg PO QPM 08/02/18 06/23/23 Unknown (Singulair) onabotulinumtoxinA 100 unit See Rx Instructions intradermal 11/15/19 06/23/23 Unknown solution for injection (Botox) .COMPLEX multivitamin (Multiple Vitamins 1 tab PO DAILY 05/25/20 06/23/23 Unknown tablet) sumatriptan succinate 100 mg tablet See Rx Instructions PO .COMPLEX 30 06/03/21 06/23/23 Unknown days #9 tabs meloxicam 15 mg tablet 15 mg PO DAILY 11/25/22 06/23/23 Unknown hydroxychloroquine 200 mg tablet 200 mg PO BID 01/02/23 06/23/23 Unknown topiramate 100 mg tablet 100 mg PO HS #30 tabs 02/10/23 06/23/23 Unknown galcanezumab-gnlm 120 mg/mL See Rx Instructions .Route 04/17/23 06/23/23 Unknown subcutaneous pen injector .COMPLEX #1 mL (Emgality Pen) semaglutide 0.25 mg or 0.5 mg (2 0.25 mg subcut .weekly 05/25/23 06/23/23 Unknown mg/3 mL) subcutaneous pen injector (Ozempic) glipizide 10 mg tablet 10 mg PO BID 06/23/23 06/23/23 Unknown lisinopril 10 mg tablet 10 mg PO DAILY 06/23/23 06/23/23 Unknown pantoprazole 40 mg tablet,delayed 40 mg PO DAILY 06/23/23 06/23/23 Unknown release Active Medications Generic Name Dose Route Start Last Admin Trade Name Freq PRN Reason Stop Dose Admin Hydroxychloroquine Sulfate 200 mg 06/23/23 09:00 06/23/23 10:12 Hydroxychloroquine Sulfate 200 Mg Tab PO 07/23/23 08:59 200 mg BID BRAD Administration Sodium Chloride 1,000 mls @ 125 mls/hr 06/23/23 08:15 06/23/23 08:28 Nss 1000ml IV 07/23/23 08:14 125 mls/hr .Q8H BRAD Administration Insulin Aspart 0 units 06/23/23 06:00 06/23/23 06:15 Insulin Aspart Per Unit Charge SC 07/23/23 05:59 1 units Q6 BRAD Administration Lisinopril 10 mg 06/23/23 09:00 06/23/23 10:12 Lisinopril 10 Mg Tab PO 07/23/23 08:59 10 mg DAILY BRAD Administration Meloxicam 15 mg 06/23/23 09:00 06/23/23 10:12 Meloxicam 7.5 Mg Tab PO 07/23/23 08:59 15 mg DAILY BRAD Administration Morphine Sulfate 2 mg 06/23/23 05:47 06/23/23 10:59 Morphine Sulfate 2 Mg/Ml Carp IV 07/07/23 05:46 2 mg Q3H PRN Administration moderate-severe Pain Multivitamins 1 tab 06/23/23 09:00 06/23/23 10:12 Multivitamin Tab PO 07/23/23 08:59 1 tab QAM BRAD Administration Pantoprazole Sodium 40 mg 06/23/23 09:00 06/23/23 10:12 Pantoprazole 40 Mg Tab PO 07/23/23 08:59 40 mg DAILY BRAD Administration Sumatriptan Succinate 100 mg 06/23/23 05:47 06/23/23 10:57 Sumatriptan Succinate 100 Mg Tab PO 07/23/23 05:46 100 mg UD PRN Administration Migraine Headache NPO Date Last Intake of Fluids: 06/22/23 Time Last Intake of Fluids: 18:00 Date Last Intake of Solids: 06/22/23 Time Last Intake of Solids: 12:00 Past Medical History Medical History Allergic rhinitis Asthma CAD (coronary artery disease) Chronic migraine Depression Diabetes mellitus type 2 in obese Fatigue Headache Hypercholesterolemia Hypertension Lupus Migraine Spinal stenosis of lumbar region Symptomatic bradycardia Exercise / Class Metabolic Activity II 4-5 Yardwork/Stairs/Walk up hill Past Family History Family History Mother COPD (chronic obstructive pulmonary disease) Past Surgical History Surgical History H/O wisdom tooth extraction History of section History of dilatation and curettage History of sinus surgery Past Anesthesia History No Hx of Anesthesia Complications and No Family Hx of Anesthesia Complications History of PONV No Hx of PONV and No Hx of Motion Sickness Social History Smoking Status: Never smoker Hx Alcohol Use: Yes (socially) Hx Substance Use: No Physical Exam Vital Signs Last Vital Signs Temp 98.2 F 06/23/23 11:49 Pulse 64 06/23/23 11:49 Resp 20 06/23/23 11:49 BP 168/98 H 06/23/23 11:49 Pulse Ox 98 06/23/23 11:49 O2 Del Method Room Air 06/23/23 11:49 ENMT Mouth: no dentition abnormality Thyromental Distance: > or= 3.5 Finger Breadths Mallampati Class: II Neck normal visual inspection Respiratory normal respiratory effort Auscultation: lungs clear to auscultation bilaterally Cardiovascular Rate/Rhythm: regular rate and regular rhythm Testing Laboratory Results 06/22/23 20:30 06/22/23 20:30 Urine Color Yellow 06/22/23 21:26 Urine Appearance Clear (Clear) 06/22/23 21:26 Urine pH 5.5 (4.5-7.5) 06/22/23 21:26 Ur Specific [place] 1.017 (1.000-1.030) 06/22/23 21:26 Urine Protein 1+ (Negative) H 06/22/23 21:26 Urine Glucose (UA) Negative (Negative) 06/22/23 21:26 Urine Ketones Negative (Negative) 06/22/23 21: Urine Nitrite Negative (Negative) 06/22/23 21:26 Ur Leukocyte Esterase Negative (Negative) 06/22/23 21:26 Urine WBC (Auto) 1-5 /hpf (0-5) 06/22/23 21:26 Urine RBC (Auto) >30 /hpf (0-4) H 06/22/23 21:26 U Hyaline Cast (Auto) 1-5 /lpf (0-5) 06/22/23 21:26 U Epithel Cells (Auto) 10-20 /lpf (0-5) H 06/22/23 21:26 Urine Bacteria (Auto) Negative (Negative) 06/22/23 21:26 Urine Test Negative (Negative) 06/22/23 21:26 06/23/23 06:05 POC Glucose 151 H 06/22/23 21:26 Urine Test Negative
[2023-06-23] MEDS ORDERED: ePHEDrine sulfate 50 MG/ML AMP IV PRN (12:36)
[2023-06-23] MEDS ORDERED: ATROPINE SULFATE 0.1 MG/ML 10ML SYR IV PRN (12:36)
[2023-06-23] MEDS ORDERED: fentaNYL citrate PF 100 MCG/2 ML VIAL IV PRN (12:36)
[2023-06-23] MEDS ORDERED: KETAMINE 50 MG/5 ML SYRINGE ONE (12:40)
[2023-06-23] MEDS ORDERED: GLYCOPYRROLATE 0.2 MG/ML VIAL ONE (12:46)
--- NOTE | 2023-06-23 12:57 | Operative Report ---
PG Post Operative Report Pre & Post Diagnosis Right Ureteral Stone Same Operation Date: 06/23/23 14:45 <No data on this case meets the specified criteria> I identified the patient and participated in the time-out.: Yes Procedure Cystoscopy with right ureteroscopy, ureteral dilation, retrograde pyelogram, stone basket extraction, and stent placement. Operation Date: 06/23/23 14:45 <No data on this case meets the specified criteria> Surgeon Juan Granda, II, DO Adapted Physical Education Specialist None Estimated Blood Loss 1 Findings Consistent with Post-Op Diagnosis Stone removed after dilating stricture at UO. Specimens Stone Right Ureter Drains 6 Fr x 24 Right Anesthesia Type General Complications none Disposition Disposition: Recovery Room Indications Patient with bothersome stones. Risks and benefits discussed at length. Description of Procedure Patient was consented and brought back to the operating room. Patient was placed under anesthesia in the supine position and moved to the dorsal lithotomy position. Patient was prepped and draped in the regular sterile fashion. A time out was completed. A 30degree Cystoscope was placed into the bladder and the entire bladder was examined. The UO's were identified. The UO was cannulized with a catheter and a retrograde pyelogram was completed. A wire was then placed. The Rigid ureteroscope was taken into the ureter. A stricture was discovered just proximal to the UO. This was dilated. The stone was identified. The stone was grasped and removed and sent for analysis. The entire area was once again examined. No residual large fragments or areas of concern were noted. The scope was slowly removed with the wire left in place. Contrast was placed through the scope for a pyelogram to assist in stent placement. The entire ureter was examined as the scope was slowly removed. No obstructions or other areas of concern were noted. With the wire in place, a 6 Fr Double J stent was placed. It was confirmed with fluoroscopy. With the stent in place, the bladder was emptied. The scope was removed. The patient was cleaned, aroused from anesthesia, and transferred to the pacu in stable condition having tolerated the procedure well with no complications. I was present and participated in all aspects of the procedure. The patient will be monitored in the PACU until transferred. Plan to remove stent in office in approx 1-2 weeks. I attest to the content of the Intraoperative Record and any orders documented therein. Any exceptions are noted below.
[2023-06-23] MEDS ORDERED: DIATRIZOATE MEGLUMINE 30% 100ML VIAL INSTIL PRN (12:58)
--- NOTE | 2023-06-23 13:18 | Anesthesiology Progress Note ---
Date of Service June 23, 2023 Anesthesia Post Procedure Vital Signs Vital Signs: Temp Pulse Pulse Resp BP BP Pulse Ox 06/23/23 13:10 72 17 139/84 95 06/23/23 13:02 97.0 F L 91 H 18 142/84 H 98 06/23/23 11:49 98.2 F 64 20 168/98 H 98 06/23/23 11:43 98.2 F 74 18 179/89 H 99 06/23/23 08:00 98.2 F 69 21 149/94 H 94 06/23/23 06:00 70 16 170/106 H 97 06/23/23 05:30 62 15 184/100 H 96 06/23/23 05:25 54 L 06/23/23 05:00 60 13 93 06/23/23 05:00 165/96 H 06/23/23 04:30 59 L 16 94 06/23/23 04:30 160/95 H 06/23/23 04:00 61 16 96 06/23/23 04:00 164/101 H 06/23/23 03:30 64 15 95 06/23/23 03:30 168/98 H 06/23/23 03:00 53 L 13 94 06/23/23 03:00 153/102 H 06/23/23 02:30 56 L 14 97 06/23/23 02:30 160/96 H 06/23/23 02:00 64 25 H 95 06/23/23 02:00 149/94 H 06/23/23 01:30 61 14 95 06/23/23 01:30 159/92 H 06/23/23 01:00 59 L 16 147/86 H 94 06/23/23 00:30 61 18 158/98 H 95 06/23/23 00:07 62 15 196/97 H 97 06/23/23 00:07 60 24 196/97 H 06/22/23 20:25 97.7 F 63 20 182/81 H 99 O2 Del Method 06/23/23 13:10 Room Air 06/23/23 13:02 Room Air 06/23/23 11:49 Room Air 06/23/23 11:43 Room Air 06/23/23 08:00 Room Air 06/23/23 06:00 06/23/23 05:30 06/23/23 05:25 06/23/23 05:00 07/28/23 05:00 06/23/23 04:30 06/23/23 04:30 06/23/23 04:00 06/23/23 04:00 06/23/23 03:30 06/23/23 03:30 06/23/23 03:00 06/23/23 03:00 06/23/23 02:30 06/23/23 02:30 06/23/23 02:00 06/23/23 02:00 06/23/23 01:30 06/23/23 01:30 06/23/23 01:00 06/23/23 00:30 06/23/23 00:07 06/23/23 00:07 06/22/23 20:25 Room Air Pain Intensity Right Flank: Pain Intensity: 3 Transfer of Care Handoff Completed per policy Notes Mental Status: alert / awake / arousable and participated in evaluation Patient Amnestic to Procedure: Yes Nausea / Vomiting: adequately controlled Pain: adequately controlled Airway Patency, RR, SpO2: stable & adequate BP & HR: stable & adequate Hydration State: stable & adequate Anesthetic Complications: no major complications apparent and Pt Satisfied with anesthetic care
--- NOTE | 2023-06-23 14:13 | Fluoroscopy Report ---
INTRAOPERATIVE RADIOGRAPHS CLINICAL HISTORY: Right ureteral stent placement. Fluoro time: 11 seconds Ka,r: 7.14 mGy FINDINGS: 3 spot fluoroscopic views of the right abdomen are obtained. The images show the proximal a nd distal ends of a right ureteral stent in appropriate position. No calcifications are clearly seen along the course of the stent. Contrast in the right renal pelvis shows fullness of the renal collect ing system. An intrauterine device is noted in the pelvis. IMPRESSION: Intraoperative images from a right ureteral stent placement procedure as above. Electronically signed by: Steven Garcia M.D. 06/23/2023 2:11 PM
--- NOTE | 2023-06-23 15:57 | Electrocardiogram Report ---
Test Reason : Blood Pressure : / mmHG Vent. Rate : 062 BPM Atrial Rate : 062 BPM P-R Int : 212 ms QRS Dur : 088 ms QT Int : 446 ms P-R-T Axes : 047 039 064 degrees QTc Int : 452 ms Sinus rhythm with 1st degree A-V block Possible Old Anteroseptal infarct (cited on or before 03-OCT-2017) Abnormal ECG When compared with ECG of 03-OCT-2017 15:17, T wave inversion no longer evident in Lateral leads Confirmed by Sanchez Crawford ([id number]) on 06/23/2023 3:57:36 PM Referred By: REFERRED SELF Confirmed By:Sanchez Crawford
[2023-06-23] MEDS: oxyCODONE HCL IR 5 MG TAB (IMMEDIATE RELEASE) PO PRN ×2 (16:45→21:11)
[2023-06-23] MEDS ORDERED: MONTELUKAST SODIUM 10 MG TABLET PO SCH (21:00)
[2023-06-23] MEDS ORDERED: TAMSULOSIN HCL 0.4 MG CAP PO SCH (21:00)
[2023-06-23] MEDS ORDERED: TOPIRAMATE 100 MG TAB PO SCH (21:00)
[2023-06-24] MEDS: oxyCODONE HCL IR 5 MG TAB (IMMEDIATE RELEASE) PO PRN ×5 (03:08→17:21)
[2023-06-24] MEDS: SUMAtriptan succinate 100 MG TAB PO PRN (03:31)
[2023-06-24] MEDS: SODIUM CHLORIDE 0.9% 1000ML 1,000 ML IV SCH ×2 (05:03→13:28)
[2023-06-24] MEDS: INSULIN ASPART PER UNIT CHARGE SC SCH ×2 (08:44→13:25)
[2023-06-24] MEDS: MULTIVITAMIN TAB PO SCH (08:45)
[2023-06-24] MEDS: PANTOprazole 40 MG TAB PO SCH (08:45)
[2023-06-24] MEDS: MELOXICAM 7.5 MG TAB PO SCH (08:45)
[2023-06-24] MEDS: HYDROXYCHLOROQUINE SULFATE 200 MG TAB PO SCH (08:45)
[2023-06-24] MEDS: lisinopril 10 MG TAB PO SCH (08:45)
[2023-06-24 08:46] LABS: Basophils # (auto) 0.04 K/uL (0-0.2); Basophils % (auto) 0.8 %; Eosinophils # (auto) 0.11 K/uL (0-0.50); Eosinophils % (auto) 2.3 %; Hematocrit (blood only) 37.4 % (37.0-47.0); Hemoglobin 12.8 g/dl (12.0-16.0); Immature Granulocytes # (auto) 0.01 K/uL (0.01-0.20); Immature Granulocytes % (auto) 0.2 %; Lymphocytes # (auto) 1.36 K/uL (1.2-3.4); Lymphocytes % (auto) 28.5 %; Mean Corpuscular Hemoglobin 29.8 pg (25.0-34.0); Mean Corpuscular Hgb Conc 34.2 g/dL (32.0-36.0); Mean Corpuscular Volume 87.2 fL (80.0-100.0); Mean Platelet Volume 9.5 fL (9.4-12.4); Monocytes # (auto) 0.31 K/uL (0.11-0.59); Monocytes % (auto) 6.5 %; Neutrophils # (auto) 2.95 K/uL (1.40-6.50); Neutrophils % (auto) 61.7 %; Platelet Count 158 K/uL (130-400); RDW Coefficient of Variation 13.4 % (11.5-14.5); RDW Standard Deviation 42.1 fL (36.4-46.3); Red Blood Count 4.29 M/uL (4.20-5.40); White Blood Count 4.78 K/ul (4.8-10.8)
[2023-06-24 09:07] LABS: BUN Creatinine Ratio 17.6 (10-20); Creatinine Clr Calc Pharmacy 140.8 ml/min; Est GFR (African American) 114.9 ml/min; Est GFR (Non-African American) 99.2 ml/min
[2023-06-24 10:55] LABS: Estimated Average Glucose 151 mg/dl; Hemoglobin A1C 6.9 % (4.5-5.6)
--- NOTE | 2023-06-24 16:31 | Discharge Summary ---
Date of Service June 24, 2023 Admission HPI Per Admitting Provider This patient is a 53-year-old female with a history of SLE, migraines, HTN, GERD, DM2 with neuropathy, allergies and asthma, TREJO who presents to the ER with severe right-sided back pain that has been worsening over the last day but started about 6 days ago. 6 days ago, she reports feeling pressure and urinary urgency for which she started drinking apple cider vinegar and cranberry juice and it did seem to get somewhat better. The right flank pain started most intensely last evening. She has not had any fevers or chills. She did have some nausea but no vomiting. Last bowel movement was earlier today. In the ER, she was found to have 3+ blood on urinalysis with greater than 30 RBCs, but no evidence of infection. A CT abdomen/pelvis showed mild right-sided hydronephrosis due to a 4.2 mm stone just above the right UV junction. In the ER, she was given 2 doses of Toradol, 2 doses of morphine, a dose of tamsulosin, and 2 doses of IV Zofran. Her labs were otherwise normal and she did not have any signs of renal insufficiency. She will be admitted for pain control and urology evaluation. Admission Exam Per Admitting Provider Constitutional: WD/WN, vitals as above ENMT: external ear and nose normal, oropharynx normal Neck: trachea midline, no thyromegaly Respiratory: normal respiratory effort, lungs clear to auscultation Cardiovascular: RRR, no murmur, no edema Chest (Breasts): Chest: normal inspection of chest Gastrointestinal (Abdomen): normal bowel sounds, soft, nontender, no hepatosplenomegaly Musculoskeletal: Extremities: extremities normal to inspection; no cyanosis and no clubbing Skin: no rashes, warm and dry Neurologic: moves all extremities and awake; no focal motor deficits Psychiatric: A+Ox3, euthymic affect Lymphatic: no lymphedema Principal Diagnosis Ureterolithiais Discharge Exam Constitutional WD/WN, vitals as above no acute distress Respiratory normal respiratory effort, lungs clear to auscultation Cardiovascular RRR, no murmur, no edema Gastrointestinal (Abdomen) normal bowel sounds, soft, nontender, no hepatosplenomegaly Genitourinary - CVA tenderness Discharge Data Allergies Allergy/AdvReac Type Severity Reaction Status Date / Time azathioprine [From Imuran] Allergy Severe Chills, Verified 05/25/23 11:31 fever, body aches, fatigue Consultations 06/23/23 01:28 ED Decision to Admit Stat 06/23/23 05:47 Consult Urology Routine Procedures Performed Operation Date: 06/23/23 14:45 Actual Procedures p Cystoscopy, Right Retrograde, Right Ureteroscopy with Basket Stone and (Right) - Juan Granda DO s Right Ureteral Stent Placement(Right) - Juan Granda DO Ordered Studies 06/22/23 21:38 CT Abd and Pelvis [CT abd pelvis IV con only] Stat 06/23/23 [place] retrograde includes kub Routine Hospital Course (1) Ureterolithiasis: (2) Asthma: (3) Hypertension: (4) Diabetes mellitus type 2 in obese: (5) Lupus: (6) Allergic rhinitis: (7) Chronic migraine: (8) Morbid obesity with BMI of 40.0-44.9, adult: BMI 44 Plan Pt is a 53 year old female who presented with right flank pain. #Ureterolithiasis: - CT showed right-sided 4.2mm stone above UV junction - UA was negative, patient was afebrile and had no leukocytosis - Patient was given Flomax and started on IV fluids - Pain was addressed with morphine and toradol - Urology was consulted, patient elected for surgery - ureteroscopy with right stone removal and stent placement done on 06/23 - Post-op pain managed with oxycodone - Patient discharged on: oxycodone for pain management, Oxybutynin for bladder spasms, Pyridium for dysuria, and Flomax - Patient to follow up with outpatient urology for stent removal #Asthma - home singulair continued during hospitalization #HTN - home Lisinopril continued during hospitalization #T2DM: - glipizide was held during hospitalization - Insulin sliding scale used for BSG management during hospitalization #Lupus: - home plaquenil, meloxicam continued during hospitalization - Follow up with rheumatology #Allergic Rhinitis: - Singulair continued during hospitalization #Chronic Migraine - Home Topamax continued during hospitalization - Follow up with neurology, address possible discontinuation of Topamax Total Time Total Time Spent Total Time Spent (In Minutes): see attending attestation Discharge Plan Discharge Items Patient Disposition: Home - Self-Care Reason For Visit: URETEROLITHIASIS Discharge Diagnosis: Ureterolithiasis Condition on Discharge: Good Activity: As commented below Activity Comment: May resume activity as tolerated, no strenuous activty for a few days Non-emergency contact: Primary Care Provider Call non-emergency contact if: you have any medication questions, your pain is not controlled and you have a fever Follow-up/Referrals: Harshal Lainez DO [Primary Care Provider] - Diet: Carb Consistent or DM2 Addtl Attending Provider Instructions: You were admitted due to flank pain caused by a stone lodged in the ureter. While hospitalized, you underwent surgery, where the stone was removed and a ureteral stent was placed. It is normal to have some discomfort following this procedure. The following are my recommendations following discharge: - Follow up with urology as directed for stent removal - Continue Flomax once daily until seen by urology - You may take Oxycodone every 6 hours or as needed for pain relief - You may take Oxybutynin 50 mg every 12 hours as needed to relieve urinary urgency during your recovery period - You may take Pyridium 200mg up to three times daily for urinary discomfort Pending Studies at Discharge: No Stand-Alone Forms: [facility] [employer], Smoking Cessation Medications and DC Order Prescriptions: New oxycodone 5 mg Tablet 5 mg PO Q6H PRN (Reason: pain) Qty: 15 0RF phenazopyridine [Pyridium] 200 mg tablet 200 mg PO Q8H Qty: 6 0RF oxybutynin chloride 5 mg tablet 5 mg PO Q12H PRN (Reason: bladder spasms) Qty: 10 0RF tamsulosin 0.4 mg Capsule 0.4 mg PO HS Qty: 14 0RF Continued montelukast [Singulair] 10 mg tablet 10 mg PO QPM meloxicam 15 mg tablet 15 mg PO DAILY Ozempic 0.25 mg or 0.5 mg (2 mg/3 mL) pen injector 0.25 mg subcut .weekly topiramate 100 mg tablet 100 mg PO HS Qty: 30 5RF Emgality Pen 120 mg/mL pen injector See Rx Instructions .ROUTE .COMPLEX Qty: 1 5RF Dose Instruction: inject 120 mg under the skin once a month Rx Instructions: inject 120 mg under the skin once a month Botox 100 unit recon soln See Rx Instructions intradermal .COMPLEX Rx Instructions: pain clinic, intradermal ; multivitamin [Multiple Vitamins] Tablet 1 tab PO DAILY sumatriptan succinate 100 mg tablet See Rx Instructions PO .COMPLEX 30 Days Qty: 9 5RF Rx Instructions: take 1 tab at onset of headache; if no relief, may repeat 1 tab after at least 2 hrs; max = 2 tabs/24 hrs PO hydroxychloroquine 200 mg tablet 200 mg PO BID pantoprazole 40 mg tablet,delayed release (DR/EC) 40 mg PO DAILY lisinopril 10 mg tablet 10 mg PO DAILY glipizide 10 mg tablet 10 mg PO BID Discharge Orders: Discharge Order (Routine); Ordered 06/24/23 Ordered By: Slade Moralez Admission Data Admit Date/Time: 06/23/23 03:21 Attending Provider: Pedro Ayala Admit Provider: Trish Zaragoza Primary Care Provider: Harshal Lainez Other Providers: Trish Zaragoza ; Bao Vazquez Other Interventions: Discharge Summary Assessment (RN) Last Done: 06/24/23 16:18 Supervising Physician Co-Signing Physician Notes Attending Attestation & Discharge Note: Pt seen/examined, chart reviewed, care plan d/w PGY1 Dr Slade Moralez. I agree w/ the rtan components of his discharge documentation. 53yo female with h/o lupus who presented with a right-sided obstructing kidney stone. Seen by [facility] and opted for surgical intervention. She was taken to the OR by Dr Juan Granda who performed basket extraction of the 4mm stone along with ureteral stent placement. She remained hemodynamically stable throughout the visit. Creatinine was also stable. There was no evidence of complicating UTI. Other chronic medical problems remained stable. Patient takes topamax for migraine prophylaxis. She was counseled that there is an association of kidney stones with topamax use. She was encouraged to talk with the provider who has prescribed this medication to her and to discuss risks/benefits of ongoing use. Discharge exam: gen - NAD, morbidly obese neck - no JVD heart - RRR, s1 s2, no murmur lungs - CTA b/l abd - soft NT ND BS+; no flank tenderness b/l ext - no edema, pulses 2+ b/l She will need f/u with [facility] in 1-2 weeks for stent management/retrieval. Pedro Ayala MD Resident Activity Tracking Resident Involvement: Resident Care Provided Care Provided: Adult Hospital Medicine
--- NOTE | 2023-06-26 14:05 | Billing Data ---
Date of Service June 24, 2023 Coding Level of Care Code 73099 INP/OBS DISCH >30 MIN Time Spent (min) 40
== END 2023-06-24 18:06 | disposition home or self-care (01) ==
LOC: ED 20:03 → INTOOBSV 06-23 03:21 → SUATTDRO 06-23 03:21 → EDINP 06-23 03:21 → 3E 06-23 13:42